=== PATIENT | male | born 1995 | race Caucasian/White ===

== ENCOUNTER 2020-10-23 22:44 | Emergency (ER) | payer SELFPAY ==
[~2020-10-23 22:44] MED LIST: Iopamidol-370 76% 500 ML 1 ML ONE
[2020-10-23] MEDS ORDERED: Lidocaine 1% w/Epinephrine 1:100K 20 ML VIAL ONE (23:14)
[2020-10-23 23:20] LABS: INR-International Normal Ratio 1.2; Prothrombin Time 15.3 sec (12.0-14.7)
[2020-10-23] MEDS ORDERED: Boostrix 0.5 ML (Tdap) VIAL ONE ×2 (23:27→23:28)
[2020-10-23 23:35] LABS: ALT (SGPT) 14 U/L (8-55); AST (SGOT) 13 U/L (5-34); Albumin 4.2 g/dL (3.5-5.0); Alkaline Phosphatase 80 U/L (40-110); BUN (Urea Nitrogen) 19 mg/dL (8.9-20.6); Bilirubin, Total 0.3 mg/dL (0.2-1.2); Calc. Creatinine Clearance 0 mL/min (70-130); Calcium 8.8 mg/dL (7.8-10.44); Chloride 107 mmol/L (98-107); Globulin 2.5 g/dL (2.4-3.5); Glucose 144 mg/dL (70-105); Potassium 4.1 mmol/L (3.5-5.1); Protein, Total 6.7 g/dL (6.0-8.3); Sodium 140 mmol/L (136-145)
[2020-10-23 23:49] LABS: Eosinophils 2 % (0-10); Hemoglobin 14.6 g/dL (14.0-18.0); Lymphocytes 66 % (21-51); MDiff Complete? YES; Mean Corpuscular HGB CONC 34.4 g/dL (32.0-36.0); Mean Corpuscular Hemoglobin 31.4 pg (27.0-31.0); Mean Corpuscular Volume 91.2 fL (78.0-98.0); Mean Platelet Volume 7.4 fL (7.4-10.4); Monocytes 7 % (0-10); Neutrophil 25 % (42-75); Platelet Count 334 thou/uL (130-400); RBC Distribution Width 11.5 % (11.5-14.5); Red Blood Cell (RBC) Count 4.65 mill/uL (4.70-6.10); White Blood Cell (WBC) Count 13.8 thou/uL (4.8-10.8)
[2020-10-23 23:50] LABS: Carbon Dioxide Less than 8 mmol/L (22-29)
[2020-10-23] MEDS ORDERED: Bacitracin 1 PK ONE (23:55)
[2020-10-24] MEDS ORDERED: Lidocaine 1% w/Epinephrine 1:100K 20 ML VIAL ONE (00:21)
[2020-10-24] MEDS ORDERED: Lidocaine 1% PF 5 ML VIAL ONE ×2 (00:50→00:55)
[2020-10-24 00:51] LABS: Anion Gap 12 mmol/L (10-20); BUN (Urea Nitrogen) 17 mg/dL (8.9-20.6); Calc. Creatinine Clearance 0 mL/min (70-130); Calcium 8.5 mg/dL (7.8-10.44); Carbon Dioxide 18 mmol/L (22-29); Chloride 110 mmol/L (98-107); Glucose 154 mg/dL (70-105); Potassium 3.4 mmol/L (3.5-5.1); Sodium 137 mmol/L (136-145)
[2020-10-24] MEDS ORDERED: Morphine 4 MG/ML VIAL ONE (00:53)
[2020-10-24 01:04] LABS: Acetaminophen Less than 6.0 mcg/mL (10.0-30.0); Alcohol Less than 10 mg/dL (Less than 10); Salicylate Less than 8.0 mg/dL (15.0-30.0)
== END 2020-10-24 02:07 | disposition home or self-care (01) ==
LOC: ERS 22:44
DX: S21.112A Laceration without foreign body of left front wall of thorax without penetration into thoracic cavity, initial encounter (principal); S01.412A Laceration without foreign body of left cheek and temporomandibular area, initial encounter; S41.012A Laceration without foreign body of left shoulder, initial encounter; W26.9XXA Contact with unspecified sharp object(s), initial encounter
CPT/HCPCS: 12005; 36415; 71045; 71260; 80053; 80307; 83605; 85025; 85610; 85730; 86850; 86870; 86900; 86901; 86922; 90471; 90715; 96374; 96375; G0390; J0690; J2270; Q9967